=== PATIENT | male | born 1965 | race Caucasian/White ===

== ENCOUNTER 2024-08-26 10:49 | Outpatient (CLI) | payer OTHER | END 2024-08-26 10:51 | disposition home or self-care (01) | LOC: SONOGRAMA 10:49 | PROVIDERS: ATTEND Pathology Anatomic Pathology | DX: C73 Malignant neoplasm of thyroid gland (principal); R59.0 Localized enlarged lymph nodes; E04.2 Nontoxic multinodular goiter ==